=== PATIENT | female | born 1950 | race Caucasian/White ===

== ENCOUNTER 2023-06-26 20:19 | Inpatient (IN) | payer MEDICARE ==
[~2023-06-26] VITALS: Ht 167.6 cm; Wt 55.3 kg
[2023-06-26] MEDS ORDERED: ZOLPIDEM TARTRATE 5 MG TABLET PO PRN (22:00)
[2023-06-26] MEDS ORDERED: MAGNESIUM HYDROXIDE 30 ML UDC PO PRN (22:00)
[2023-06-26] MEDS ORDERED: ACETAMINOPHEN 325 MG TABLET PO PRN (22:00)
[2023-06-26] MEDS ORDERED: MAG HYDROX/AL HYDROX/SIMETH 30 ML UDC PO PRN (22:00)
[2023-06-26] MEDS ORDERED: BLOOD SUGAR DIAGNOSTIC 1 EACH STRIP IN ONE (23:00)
[2023-06-27] MEDS ORDERED: PANT40TA49 PO (01:01)
[2023-06-27] MEDS ORDERED: APIX5TAB PO (01:01)
[2023-06-27] MEDS ORDERED: METO25TA4 PO (01:01)
[2023-06-27] MEDS ORDERED: ROSU5TAB13 PO (01:01)
[2023-06-27] MEDS ORDERED: ONDA4TAB11 PO (01:02)
[2023-06-27] MEDS ORDERED: DOXE25CA3 PO (01:04)
[2023-06-27 02:11] VITALS: BP 132/76; TEMP 97.9; O2SAT 98
[2023-06-27] MEDS ORDERED: ONDANSETRON 4 MG TAB.RAPDIS PO PRN (04:30)
[2023-06-27] MEDS ORDERED: DEXTROSE 50%-WATER 50 ML DISP.SYRIN IV PRN (04:30)
[2023-06-27] MEDS ORDERED: BLOOD SUGAR DIAGNOSTIC 1 EACH STRIP IN SCH (07:30)
[2023-06-27 08:00] VITALS: BP 146/80; TEMP 98.2; O2SAT 94
[2023-06-27] MEDS: PANTOPRAZOLE 40 MG TABLET.DR PO SCH (08:00)
[2023-06-27] MEDS ORDERED: DOXEPIN HCL (25 MG) 25 MG CAPSULE PO SCH (09:00)
[2023-06-27] MEDS: METOPROLOL SUCCINATE 25 MG TAB.SR.24H PO SCH ×2 (09:34→21:37)
[2023-06-27] MEDS: APIXABAN 5 MG TABLET PO SCH ×2 (09:38→21:38)
[2023-06-27] MEDS: ATORVASTATIN 10 MG TABLET PO SCH (10:06)
[2023-06-27] MEDS: LORAZEPAM 1 MG TABLET PO PRN (15:35)
[2023-06-27 16:00] VITALS: BP 158/84; TEMP 98; O2SAT 94
[2023-06-27 20:00] VITALS: BP 187/81; TEMP 98.1; O2SAT 100
[2023-06-27] MEDS: QUETIAPINE FUMARATE 25 MG TABLET PO SCH (21:38)
[2023-06-28 08:00] VITALS: BP 151/69; TEMP 98; O2SAT 98
[2023-06-28] MEDS: PANTOPRAZOLE 40 MG TABLET.DR PO SCH (08:41)
[2023-06-28] MEDS: METOPROLOL SUCCINATE 25 MG TAB.SR.24H PO SCH ×2 (08:41→21:00)
[2023-06-28] MEDS: ATORVASTATIN 10 MG TABLET PO SCH (08:41)
[2023-06-28] MEDS: ESCITALOPRAM OXALATE (10 MG) 10 MG TABLET PO SCH (08:41)
[2023-06-28] MEDS: APIXABAN 5 MG TABLET PO SCH ×2 (08:42→21:00)
[2023-06-28 16:00] VITALS: BP 138/78; TEMP 97.7; O2SAT 98
[2023-06-28 20:00] VITALS: BP 129/74; TEMP 98.3; O2SAT 97
[2023-06-28 20:54] LABS: BASOPHILS # (AUTO) 0.1 K/uL (0.0-0.2); BASOPHILS % (AUTO) 0.9 % (0.0-2.0); EOSINOPHILS # (AUTO) 0.1 K/uL (0.0-0.7); EOSINOPHILS % (AUTO) 1.2 % (0.0-6.0); HEMATOCRIT 42 % (33-45); HEMOGLOBIN 13.6 g/dL (11.5-14.8); LYMPHOCYTES # (AUTO) 3.1 K/uL (0.8-4.8); LYMPHOCYTES % (AUTO) 28.1 % (20.0-44.0); MEAN CORPUSCULAR HEMOGLOBIN 30 PG (26.0-33.0); MEAN CORPUSCULAR HGB CONC 33 g/dl (31.0-36.0); MEAN CORPUSCULAR VOLUME 92 fL (82-100); MONOCYTES # (AUTO) 0.8 K/uL (0.1-1.30); MONOCYTES % (AUTO) 7.7 % (2.0-12.0); NEUTROPHILS # (AUTO) 6.8 K/uL (1.8-8.9); NEUTROPHILS % (AUTO) 62.1 % (43.0-81.0); PLATELET COUNT (AUTO) 358 K/uL (150-450); RED BLOOD CELL COUNT(AUTO) 4.57 MIL/uL (4.0-5.2); RED CELL DISTRIBUTION WIDTH 13.9 % (11.5-15.0); WHITE BLOOD COUNT (AUTO) 10.9 K/uL (4.3-11.0)
[2023-06-28 21:24] LABS: CHOLESTEROL 134 mg/dL (<200); HDL CHOLESTEROL 37 mg/dL (40-60); LDL 85 mg/dL (0-99); TRIGLYCERIDES 77 mg/dL (30-150)
[2023-06-28 21:26] LABS: THYROID STIMULATING HORMONE 1.629 uIU/mL (0.358-3.74)
[2023-06-28 21:38] LABS: CALCIUM, SERUM 9.7 mg/dL (8.5-10.1); CARBON DIOXIDE 24 mmol/L (21-32); CHLORIDE 105 mmol/L (98-107); CREATININE 0.9 mg/dL (0.6-1.3); GLUCOSE 126 mg/dL (74-106); POTASSIUM 4.9 mmol/L (3.5-5.1); SODIUM SERUM 142 mmol/L (136-145); UREA NITROGEN, BLOOD 25 mg/dL (7-18)
[2023-06-28] MEDS: QUETIAPINE FUMARATE 25 MG TABLET PO SCH (21:59)
[2023-06-29 08:00] VITALS: BP 156/72; TEMP 98.1; O2SAT 96
[2023-06-29] MEDS: PANTOPRAZOLE 40 MG TABLET.DR PO SCH (08:09)
[2023-06-29] MEDS: METOPROLOL SUCCINATE 25 MG TAB.SR.24H PO SCH ×2 (08:21→21:33)
[2023-06-29] MEDS: ESCITALOPRAM OXALATE (10 MG) 10 MG TABLET PO SCH ×2 (08:22→16:09)
[2023-06-29] MEDS: ATORVASTATIN 10 MG TABLET PO SCH (08:22)
[2023-06-29] MEDS: APIXABAN 5 MG TABLET PO SCH ×2 (08:28→21:34)
[2023-06-29 16:00] VITALS: BP 156/70; TEMP 97.9; O2SAT 98
[2023-06-29] MEDS: LORAZEPAM 1 MG TABLET PO PRN (16:09)
[2023-06-29 20:28] VITALS: BP 107/82; TEMP 97.9; O2SAT 96
[2023-06-29] MEDS: QUETIAPINE FUMARATE 25 MG TABLET PO SCH (21:34)
[2023-06-30] MEDS: PANTOPRAZOLE 40 MG TABLET.DR PO SCH (07:56)
[2023-06-30 08:00] VITALS: BP 137/78; TEMP 97.8; O2SAT 98
[2023-06-30] MEDS: METOPROLOL SUCCINATE 25 MG TAB.SR.24H PO SCH ×2 (08:25→21:14)
[2023-06-30] MEDS: ATORVASTATIN 10 MG TABLET PO SCH (08:25)
[2023-06-30] MEDS: ESCITALOPRAM OXALATE (10 MG) 10 MG TABLET PO SCH ×2 (08:25→16:00)
[2023-06-30] MEDS: APIXABAN 5 MG TABLET PO SCH ×2 (08:26→21:15)
[2023-06-30 16:00] VITALS: BP 159/66; TEMP 98.6; O2SAT 96
[2023-06-30] MEDS: QUETIAPINE FUMARATE 25 MG TABLET PO SCH (21:15)
[2023-06-30 23:11] VITALS: BP 113/69; TEMP 97.8; O2SAT 100
[2023-07-01 01:06] LABS: FOLIC ACID 10.2 ng/mL (>3.0)
[2023-07-01 08:00] VITALS: BP_SYST 140; BP_SYST 165; BP_DIAS 80; BP_DIAS 87; TEMP 97.6; O2SAT 98
[2023-07-01] MEDS: ESCITALOPRAM OXALATE (10 MG) 10 MG TABLET PO SCH ×2 (09:05→16:23)
[2023-07-01] MEDS: PANTOPRAZOLE 40 MG TABLET.DR PO SCH (09:05)
[2023-07-01] MEDS: ATORVASTATIN 10 MG TABLET PO SCH (09:05)
[2023-07-01] MEDS: METOPROLOL SUCCINATE 25 MG TAB.SR.24H PO SCH ×2 (09:06→21:18)
[2023-07-01] MEDS: APIXABAN 5 MG TABLET PO SCH ×2 (09:08→21:24)
[2023-07-01 11:42] VITALS: BP 152/65
[2023-07-01 16:00] VITALS: BP 146/74; TEMP 97.9; O2SAT 97
[2023-07-01] MEDS: QUETIAPINE FUMARATE 25 MG TABLET PO SCH (21:16)
[2023-07-01 21:29] VITALS: BP 160/75; TEMP 99.1; O2SAT 99
[2023-07-02] MEDS: LORAZEPAM 1 MG TABLET PO PRN (06:23)
[2023-07-02] MEDS: PANTOPRAZOLE 40 MG TABLET.DR PO SCH (07:52)
[2023-07-02 08:00] VITALS: BP 156/78; TEMP 98.7; O2SAT 97
[2023-07-02] MEDS: ESCITALOPRAM OXALATE (10 MG) 10 MG TABLET PO SCH (08:29)
[2023-07-02] MEDS: ATORVASTATIN 10 MG TABLET PO SCH (08:29)
[2023-07-02] MEDS: METOPROLOL SUCCINATE 25 MG TAB.SR.24H PO SCH ×2 (08:30→20:26)
[2023-07-02] MEDS: APIXABAN 5 MG TABLET PO SCH ×2 (08:30→20:27)
[2023-07-02] MEDS ORDERED: VENLAFAXINE XR 75 MG CAP.SR.24H PO SCH (10:00)
[2023-07-02] MEDS: VENLAFAXINE 37.5 MG TABLET PO SCH (13:29)
[2023-07-02 15:45] VITALS: BP 113/58; TEMP 97.8; O2SAT 97
[2023-07-02 16:00] VITALS: BP 113/58; TEMP 97.8; O2SAT 96
[2023-07-02 20:24] VITALS: BP 149/65; TEMP 99.3; O2SAT 98
[2023-07-02] MEDS: QUETIAPINE FUMARATE 25 MG TABLET PO SCH (21:10)
[2023-07-03 08:00] VITALS: BP 159/71; TEMP 97.6; O2SAT 94
[2023-07-03] MEDS: APIXABAN 5 MG TABLET PO SCH ×2 (08:19→21:25)
[2023-07-03] MEDS: PANTOPRAZOLE 40 MG TABLET.DR PO SCH (08:19)
[2023-07-03] MEDS: ATORVASTATIN 10 MG TABLET PO SCH (08:19)
[2023-07-03] MEDS: VENLAFAXINE 37.5 MG TABLET PO SCH (08:19)
[2023-07-03] MEDS: METOPROLOL SUCCINATE 25 MG TAB.SR.24H PO SCH ×2 (08:20→21:23)
[2023-07-03] MEDS: ENSURE ENLIVE 237 ML LIQUID (VANILLA) PO SCH (09:26)
[2023-07-03 16:00] VITALS: BP 141/67; TEMP 97.8; O2SAT 97
[2023-07-03] MEDS: QUETIAPINE FUMARATE 25 MG TABLET PO SCH (21:22)
[2023-07-04 08:00] VITALS: BP 159/69; TEMP 97.8; O2SAT 98
[2023-07-04] MEDS: VENLAFAXINE 37.5 MG TABLET PO SCH (08:10)
[2023-07-04] MEDS: ENSURE ENLIVE 237 ML LIQUID (VANILLA) PO SCH (08:10)
[2023-07-04] MEDS: APIXABAN 5 MG TABLET PO SCH ×2 (08:10→21:26)
[2023-07-04] MEDS: ATORVASTATIN 10 MG TABLET PO SCH (08:10)
[2023-07-04] MEDS: METOPROLOL SUCCINATE 25 MG TAB.SR.24H PO SCH ×2 (08:10→21:24)
[2023-07-04] MEDS: PANTOPRAZOLE 40 MG TABLET.DR PO SCH (08:10)
[2023-07-04 09:30] VITALS: BP 132/79
[2023-07-04 16:00] VITALS: BP 140/63; TEMP 97.8; O2SAT 97
[2023-07-04 20:00] VITALS: BP 160/77; TEMP 97.9; O2SAT 98
[2023-07-04] MEDS: QUETIAPINE FUMARATE 25 MG TABLET PO SCH (21:23)
[2023-07-05 08:00] VITALS: BP 134/74; TEMP 97.8; O2SAT 98
[2023-07-05] MEDS: VENLAFAXINE 37.5 MG TABLET PO SCH (08:01)
[2023-07-05] MEDS: ATORVASTATIN 10 MG TABLET PO SCH (08:01)
[2023-07-05] MEDS: PANTOPRAZOLE 40 MG TABLET.DR PO SCH (08:01)
[2023-07-05] MEDS: METOPROLOL SUCCINATE 25 MG TAB.SR.24H PO SCH ×2 (08:01→21:26)
[2023-07-05] MEDS: APIXABAN 5 MG TABLET PO SCH ×2 (08:02→21:25)
[2023-07-05] MEDS: ENSURE ENLIVE 237 ML LIQUID (VANILLA) PO SCH (08:03)
[2023-07-05 16:00] VITALS: BP 142/61; TEMP 98.1; O2SAT 97
[2023-07-05 20:00] VITALS: BP 139/82; TEMP 97.6; O2SAT 99
[2023-07-05] MEDS: QUETIAPINE FUMARATE 25 MG TABLET PO SCH (21:26)
[2023-07-06 08:00] VITALS: BP 162/74; TEMP 97.9; O2SAT 95
[2023-07-06] MEDS: PANTOPRAZOLE 40 MG TABLET.DR PO SCH (08:08)
[2023-07-06] MEDS: VENLAFAXINE 37.5 MG TABLET PO SCH (08:08)
[2023-07-06] MEDS: ATORVASTATIN 10 MG TABLET PO SCH (08:09)
[2023-07-06] MEDS: APIXABAN 5 MG TABLET PO SCH ×2 (08:09→21:01)
[2023-07-06] MEDS: METOPROLOL SUCCINATE 25 MG TAB.SR.24H PO SCH ×2 (08:09→21:02)
[2023-07-06] MEDS: ENSURE ENLIVE 237 ML LIQUID (VANILLA) PO SCH (08:10)
[2023-07-06 15:59] VITALS: BP 141/66; TEMP 98; O2SAT 99
[2023-07-06 20:17] VITALS: BP 101/62; TEMP 98; O2SAT 98
[2023-07-06] MEDS: QUETIAPINE FUMARATE 25 MG TABLET PO SCH (21:48)
[2023-07-07 08:00] VITALS: BP 139/67; TEMP 98.6; O2SAT 97
[2023-07-07] MEDS: VENLAFAXINE 37.5 MG TABLET PO SCH (08:05)
[2023-07-07] MEDS: PANTOPRAZOLE 40 MG TABLET.DR PO SCH (08:05)
[2023-07-07] MEDS: ENSURE ENLIVE 237 ML LIQUID (VANILLA) PO SCH (08:06)
[2023-07-07] MEDS: METOPROLOL SUCCINATE 25 MG TAB.SR.24H PO SCH ×2 (08:06→21:15)
[2023-07-07] MEDS: ATORVASTATIN 10 MG TABLET PO SCH (08:06)
[2023-07-07] MEDS: APIXABAN 5 MG TABLET PO SCH ×2 (08:08→21:16)
[2023-07-07 16:00] VITALS: BP 130/72; TEMP 97.9; O2SAT 98
[2023-07-07 19:42] VITALS: BP 154/66; TEMP 97.6; O2SAT 97
[2023-07-07] MEDS: QUETIAPINE FUMARATE 25 MG TABLET PO SCH (21:16)
[2023-07-08] MEDS: PANTOPRAZOLE 40 MG TABLET.DR PO SCH (07:54)
[2023-07-08 08:00] VITALS: BP 142/93; TEMP 97.8; O2SAT 96
[2023-07-08] MEDS: APIXABAN 5 MG TABLET PO SCH ×2 (08:02→21:06)
[2023-07-08] MEDS: METOPROLOL SUCCINATE 25 MG TAB.SR.24H PO SCH ×2 (08:03→21:07)
[2023-07-08] MEDS: ATORVASTATIN 10 MG TABLET PO SCH (08:03)
[2023-07-08] MEDS: VENLAFAXINE 37.5 MG TABLET PO SCH (08:06)
[2023-07-08] MEDS: LORAZEPAM 1 MG TABLET PO PRN ×2 (08:06→23:26)
[2023-07-08] MEDS: ENSURE ENLIVE 237 ML LIQUID (VANILLA) PO SCH (08:10)
[2023-07-08 16:00] VITALS: BP 153/67; TEMP 97.9; O2SAT 98
[2023-07-08 20:12] VITALS: BP 138/72; TEMP 98; O2SAT 99
[2023-07-08] MEDS: QUETIAPINE FUMARATE 25 MG TABLET PO SCH (21:09)
[2023-07-09] MEDS: PANTOPRAZOLE 40 MG TABLET.DR PO SCH (07:51)
[2023-07-09 08:00] VITALS: BP 147/64; TEMP 97.8; O2SAT 99
[2023-07-09] MEDS: VENLAFAXINE 37.5 MG TABLET PO SCH (08:22)
[2023-07-09] MEDS: METOPROLOL SUCCINATE 25 MG TAB.SR.24H PO SCH ×2 (08:22→21:08)
[2023-07-09] MEDS: APIXABAN 5 MG TABLET PO SCH ×2 (08:24→21:09)
[2023-07-09] MEDS: ENSURE ENLIVE 237 ML LIQUID (VANILLA) PO SCH (08:25)
[2023-07-09] MEDS: LORAZEPAM 1 MG TABLET PO PRN (14:22)
[2023-07-09 16:00] VITALS: BP 119/50; TEMP 98.7; O2SAT 99
[2023-07-09 20:14] VITALS: BP 147/70; TEMP 99.5; O2SAT 99
[2023-07-09] MEDS: QUETIAPINE FUMARATE 25 MG TABLET PO SCH (21:08)
[2023-07-09] MEDS: ATORVASTATIN 10 MG TABLET PO SCH (21:10)
[2023-07-10 08:00] VITALS: BP 140/72; TEMP 98.8; O2SAT 99
[2023-07-10] MEDS: APIXABAN 5 MG TABLET PO SCH ×2 (08:13→21:47)
[2023-07-10] MEDS: METOPROLOL SUCCINATE 25 MG TAB.SR.24H PO SCH ×2 (08:13→21:46)
[2023-07-10] MEDS: VENLAFAXINE 37.5 MG TABLET PO SCH (08:14)
[2023-07-10] MEDS: PANTOPRAZOLE 40 MG TABLET.DR PO SCH (08:14)
[2023-07-10] MEDS: ENSURE ENLIVE 237 ML LIQUID (VANILLA) PO SCH (08:14)
[2023-07-10 16:00] VITALS: BP 130/65; TEMP 98.4; O2SAT 98
[2023-07-10 20:00] VITALS: BP 103/51; TEMP 98.1; O2SAT 96
[2023-07-10] MEDS: ATORVASTATIN 10 MG TABLET PO SCH (21:45)
[2023-07-10] MEDS: QUETIAPINE FUMARATE 25 MG TABLET PO SCH (21:45)
[2023-07-11 08:00] VITALS: BP 141/70; TEMP 98.4; O2SAT 95
[2023-07-11] MEDS: VENLAFAXINE 37.5 MG TABLET PO SCH (09:06)
[2023-07-11] MEDS: PANTOPRAZOLE 40 MG TABLET.DR PO SCH (09:06)
[2023-07-11] MEDS: APIXABAN 5 MG TABLET PO SCH (09:07)
[2023-07-11] MEDS: ENSURE ENLIVE 237 ML LIQUID (VANILLA) PO SCH (09:07)
[2023-07-11 09:08] VITALS: BP 141/70
[2023-07-11] MEDS: METOPROLOL SUCCINATE 25 MG TAB.SR.24H PO SCH (09:08)
== END 2023-07-11 13:45 | DRG 885 ==
LOC: GPS 21:07
PROVIDERS: ADMIT Psychiatry & Neurology Psychiatry; ATTEND Nurse Practitioner Family
DX: F20.0 Paranoid schizophrenia (principal); F03.918 Unspecified dementia, unspecified severity, with other behavioral disturbance; F03.93 Unspecified dementia, unspecified severity, with mood disturbance; F03.94 Unspecified dementia, unspecified severity, with anxiety; F32.A Depression, unspecified; F29 Unspecified psychosis not due to a substance or known physiological condition; I10 Essential (primary) hypertension; Z79.01 Long term (current) use of anticoagulants; Z79.899 Other long term (current) drug therapy; Z73.6 Limitation of activities due to disability; E78.5 Hyperlipidemia, unspecified; I48.91 Unspecified atrial fibrillation
CPT/HCPCS: 36415; 70450-TC; 80048-TC; 80061-TC; 82607-TC; 83921; 84439-TC; 84443-TC; 85025-TC; 97116-TC; Q0162

== ENCOUNTER 2023-08-15 13:35 | Inpatient (IN) | payer MEDICARE, OTHER ==
[~2023-08-15] VITALS: Ht 162.6 cm; Wt 57.2 kg
[~2023-08-15 13:35] MED LIST: APIX5TAB PO; DOXE25CA3 PO; METO25TA4 PO; ONDA4TAB11 PO; PANT40TA49 PO; ROSU5TAB13 PO
[2023-08-15] MEDS ORDERED: CLON0.2T PO (14:22)
[2023-08-15] MEDS ORDERED: ACET-868 PO (14:22)
[2023-08-15] MEDS ORDERED: ATOR10TA PO (14:22)
[2023-08-15] MEDS ORDERED: NITR0.4T48 SL (14:22)
[2023-08-15] MEDS ORDERED: ONDA-97 PO (14:22)
[2023-08-15] MEDS ORDERED: QUET25TA PO (14:22)
[2023-08-15] MEDS ORDERED: FLUO10CA26 PO (14:22)
[2023-08-15 16:04] LABS: BASOPHILS # (AUTO) 0.1 K/uL (0.0-0.2); BASOPHILS % (AUTO) 0.9 % (0.0-2.0); EOSINOPHILS # (AUTO) 0.1 K/uL (0.0-0.7); RED CELL DISTRIBUTION WIDTH 13.7 % (11.5-15.0)
[2023-08-15 16:12] LABS: EOSINOPHILS % (AUTO) 0.9 % (0.0-6.0); HEMATOCRIT 39 % (33-45); LYMPHOCYTES # (AUTO) 1.7 K/uL (0.8-4.8); LYMPHOCYTES % (AUTO) 20.4 % (20.0-44.0); MEAN CORPUSCULAR HEMOGLOBIN 30 PG (26.0-33.0); MEAN CORPUSCULAR HGB CONC 34 g/dl (31.0-36.0); MEAN CORPUSCULAR VOLUME 90 fL (82-100); MONOCYTES # (AUTO) 0.6 K/uL (0.1-1.30); MONOCYTES % (AUTO) 7.6 % (2.0-12.0); NEUTROPHILS % (AUTO) 70.2 % (43.0-81.0); PLATELET COUNT (AUTO) 284 K/uL (150-450); WHITE BLOOD COUNT (AUTO) 8.5 K/uL (4.3-11.0)
[2023-08-15 16:27] LABS: SERUM AMMONIA 32 umol/L (11-32)
[2023-08-15 16:32] LABS: ALANINE AMINOTRANSFERASE 34 U/L (12-78); ALBUMIN 3.2 g/dL (3.4-5.0); ALKALINE PHOSPHATASE 58 U/L (46-116); ASPARTATE AMINOTRANSFERASE 20 U/L (15-37); BILIRUBIN,DIRECT 0.1 mg/dL (0.0-0.2); BILIRUBIN,TOTAL 0.4 mg/dL (0.2-1.0); CALCIUM, SERUM 8.8 mg/dL (8.5-10.1); CARBON DIOXIDE 26 mmol/L (21-32); CHLORIDE 105 mmol/L (98-107); CREATININE 0.9 mg/dL (0.6-1.3); GLUCOSE 117 mg/dL (74-106); POTASSIUM 3.8 mmol/L (3.5-5.1); SODIUM SERUM 136 mmol/L (136-145); TOTAL PROTEIN, SERUM 6.5 g/dL (6.4-8.2); UREA NITROGEN, BLOOD 15 mg/dL (7-18)
[2023-08-15 16:33] LABS: ACETAMINOPHEN 0 ug/ml (10-30); ALCOHOL, BLOOD < 3 mg/dL (0-10); SALICYLATE 1.2 mg/dL (2.8-20.0)
[2023-08-15 16:39] LABS: THYROID STIMULATING HORMONE 1.027 uIU/mL (0.358-3.74)
[2023-08-15 16:40] LABS: LACTIC ACID 1.4 mmol/L (0.4-2.0)
[2023-08-15 16:42] LABS: APPEARANCE,URINE CLEAR (CLEAR); BILIRUBIN,URINE NEGATIVE (NEGATIVE); BLOOD, URINE 1+ Ery/uL (NEGATIVE); COLOR,URINE YELLOW (YELLOW); KETONES,URINE NEGATIVE (NEGATIVE); LEUKOCYTE ESTERASE ,URINE TRACE (NEGATIVE); NITRITE, URINE NEGATIVE (NEGATIVE); PROTEIN,URINE NEGATIVE (NEGATIVE); UGLUCOSE 1+ mg/dL (NEGATIVE); UROBILINOGEN,URINE 0.2 EU/dL (0.2)
[2023-08-15] MEDS ORDERED: LORAZEPAM INJ 2 MG/ML VIAL IM ONE (17:00)
[2023-08-15] MEDS ORDERED: HALOPERIDOL LACTATE INJ 5 MG/ML VIAL IM ONE (17:00)
[2023-08-15] MEDS ORDERED: HALOPERIDOL LACTATE INJ 5 MG/ML VIAL ONE (17:07)
[2023-08-15] MEDS ORDERED: LORAZEPAM INJ 2 MG/ML VIAL ONE (17:08)
[2023-08-15 17:21] LABS: AMPHETAMINE, URINE NEGATIVE (NEGATIVE); BARBITURATE, URINE NEGATIVE (NEGATIVE); BENZODIAZEPINE, URINE NEGATIVE (NEGATIVE); CANNABINOID, URINE NEGATIVE (NEGATIVE); COCCAINE, URINE NEGATIVE (NEGATIVE); OPIATE, URINE NEGATIVE (NEGATIVE); PHENCYCLIDINE SCREEN,URINE NEGATIVE (NEGATIVE)
[2023-08-15 17:51] LABS: ADD URINE CULTURE NO; BACTERIA,URINE None seen /HPF (None Seen); CALCIUM OXALATE CRYSTALS,UR Rare /HPF (None Seen); RBC,URINE NONE SEEN /HPF (0-2); WBC,URINE 0-2 /HPF (0-3)
[2023-08-15 22:45] VITALS: BP 171/75; TEMP 98.3; O2SAT 99
[2023-08-15] MEDS ORDERED: BLOOD SUGAR DIAGNOSTIC 1 EACH STRIP IN ONE (23:00)
[2023-08-15] MEDS ORDERED: MAGNESIUM HYDROXIDE 30 ML UDC PO PRN (23:00)
[2023-08-15] MEDS ORDERED: MAG HYDROX/AL HYDROX/SIMETH 30 ML UDC PO PRN (23:00)
[2023-08-16] MEDS: ATORVASTATIN 10 MG TABLET PO SCH ×2 (00:13→21:38)
[2023-08-16] MEDS: METOPROLOL SUCCINATE 25 MG TAB.SR.24H PO SCH ×3 (00:13→21:00)
[2023-08-16] MEDS: APIXABAN 5 MG TABLET PO SCH ×3 (00:17→21:00)
[2023-08-16 08:00] VITALS: BP 137/66; TEMP 97.9; O2SAT 98
[2023-08-16] MEDS: LORAZEPAM 1 MG TABLET PO PRN ×3 (09:38→23:01)
[2023-08-16] MEDS: ACETAMINOPHEN 325 MG TABLET PO PRN (12:26)
[2023-08-16] MEDS: Fluoxetine 10 mg capsule PO SCH (14:07)
[2023-08-16 16:00] VITALS: BP 129/54; TEMP 98.6; O2SAT 99
[2023-08-16 20:07] VITALS: BP 126/72; TEMP 98; O2SAT 98
[2023-08-16] MEDS: QUETIAPINE FUMARATE 25 MG TABLET PO SCH (20:17)
[2023-08-17 08:00] VITALS: BP 110/63; TEMP 97.8; O2SAT 96
[2023-08-17] MEDS: Fluoxetine 10 mg capsule PO SCH (09:12)
[2023-08-17] MEDS: METOPROLOL SUCCINATE 25 MG TAB.SR.24H PO SCH ×2 (09:13→20:59)
[2023-08-17] MEDS: APIXABAN 5 MG TABLET PO SCH ×2 (09:14→20:58)
[2023-08-17] MEDS: LORAZEPAM 1 MG TABLET PO PRN (09:24)
[2023-08-17 16:13] VITALS: BP 140/69; TEMP 97.8; O2SAT 98
[2023-08-17] MEDS: QUETIAPINE FUMARATE 25 MG TABLET PO SCH (21:05)
[2023-08-17] MEDS: ATORVASTATIN 10 MG TABLET PO SCH (21:05)
[2023-08-18 08:00] VITALS: BP 144/74; TEMP 98.1; O2SAT 98
[2023-08-18] MEDS: Fluoxetine 10 mg capsule PO SCH (10:07)
[2023-08-18] MEDS: METOPROLOL SUCCINATE 25 MG TAB.SR.24H PO SCH ×2 (10:07→21:36)
[2023-08-18] MEDS: APIXABAN 5 MG TABLET PO SCH ×2 (10:10→21:41)
[2023-08-18] MEDS: LORAZEPAM 1 MG TABLET PO PRN (12:36)
[2023-08-18 16:00] VITALS: BP 157/71; TEMP 97.5; O2SAT 97
[2023-08-18 20:32] VITALS: BP 136/78; TEMP 97.9; O2SAT 97
[2023-08-18] MEDS ORDERED: OLANZAPINE 2.5 MG TABLET PO SCH (21:00)
[2023-08-18] MEDS: OLANZAPINE 2.5 MG TABLET PO SCH (21:36)
[2023-08-18] MEDS: ATORVASTATIN 10 MG TABLET PO SCH (21:37)
[2023-08-18] MEDS: ZOLPIDEM TARTRATE 5 MG TABLET PO PRN (23:51)
[2023-08-19 07:32] LABS: BASOPHILS % (AUTO) 0.7 % (0.0-2.0); EOSINOPHILS # (AUTO) 0.2 K/uL (0.0-0.7); EOSINOPHILS % (AUTO) 2.7 % (0.0-6.0); HEMATOCRIT 38 % (33-45); HEMOGLOBIN 13.1 g/dL (11.5-14.8); LYMPHOCYTES # (AUTO) 2.2 K/uL (0.8-4.8); LYMPHOCYTES % (AUTO) 31.8 % (20.0-44.0); MEAN CORPUSCULAR HEMOGLOBIN 30 PG (26.0-33.0); MEAN CORPUSCULAR HGB CONC 34 g/dl (31.0-36.0); MEAN CORPUSCULAR VOLUME 88 fL (82-100); MONOCYTES # (AUTO) 0.6 K/uL (0.1-1.30); MONOCYTES % (AUTO) 8.5 % (2.0-12.0); NEUTROPHILS % (AUTO) 56.3 % (43.0-81.0); PLATELET COUNT (AUTO) 284 K/uL (150-450); RED BLOOD CELL COUNT(AUTO) 4.36 MIL/uL (4.0-5.2); RED CELL DISTRIBUTION WIDTH 13.7 % (11.5-15.0); WHITE BLOOD COUNT (AUTO) 7.1 K/uL (4.3-11.0)
[2023-08-19 07:59] VITALS: BP 140/77; TEMP 98.7; O2SAT 100
[2023-08-19] MEDS: Fluoxetine 10 mg capsule PO SCH (08:30)
[2023-08-19] MEDS: METOPROLOL SUCCINATE 25 MG TAB.SR.24H PO SCH ×2 (08:31→21:23)
[2023-08-19] MEDS: OLANZAPINE 2.5 MG TABLET PO SCH ×2 (08:31→21:22)
[2023-08-19] MEDS: APIXABAN 5 MG TABLET PO SCH ×2 (09:51→21:21)
[2023-08-19 16:00] VITALS: BP 134/71; TEMP 97.9; O2SAT 98
[2023-08-19 20:00] VITALS: BP 124/64; TEMP 98.8; O2SAT 95
[2023-08-19] MEDS: ATORVASTATIN 10 MG TABLET PO SCH (21:21)
[2023-08-19] MEDS: ACETAMINOPHEN 325 MG TABLET PO PRN (21:23)
[2023-08-19] MEDS: ZOLPIDEM TARTRATE 5 MG TABLET PO PRN (23:06)
[2023-08-20 08:00] VITALS: BP 136/60; TEMP 97.7; O2SAT 100
[2023-08-20] MEDS: METOPROLOL SUCCINATE 25 MG TAB.SR.24H PO SCH ×2 (08:32→20:52)
[2023-08-20] MEDS: Fluoxetine 10 mg capsule PO SCH (08:32)
[2023-08-20] MEDS: APIXABAN 5 MG TABLET PO SCH ×2 (08:33→20:50)
[2023-08-20] MEDS: LORAZEPAM 1 MG TABLET PO PRN (15:06)
[2023-08-20 16:00] VITALS: BP 126/60; TEMP 98.1; O2SAT 96
[2023-08-20] MEDS: ACETAMINOPHEN 325 MG TABLET PO PRN (20:52)
[2023-08-20 20:58] VITALS: BP 125/69; TEMP 97.9; O2SAT 99
[2023-08-20] MEDS: ATORVASTATIN 10 MG TABLET PO SCH (21:02)
[2023-08-20] MEDS: OLANZAPINE 2.5 MG TABLET PO SCH (21:02)
[2023-08-20] MEDS: ZOLPIDEM TARTRATE 5 MG TABLET PO PRN (23:20)
[2023-08-21 08:00] VITALS: BP 115/58; TEMP 98.2; O2SAT 96
[2023-08-21] MEDS: APIXABAN 5 MG TABLET PO SCH ×2 (09:32→21:02)
[2023-08-21 09:34] VITALS: BP 155/69
[2023-08-21] MEDS: METOPROLOL SUCCINATE 25 MG TAB.SR.24H PO SCH ×2 (09:34→20:59)
[2023-08-21] MEDS: Fluoxetine 10 mg capsule PO SCH (09:39)
[2023-08-21] MEDS: LORAZEPAM 1 MG TABLET PO PRN (11:29)
[2023-08-21 16:00] VITALS: BP 140/87; TEMP 98.4; O2SAT 99
[2023-08-21 20:00] VITALS: BP 140/85; TEMP 98.5; O2SAT 98
[2023-08-21] MEDS: ATORVASTATIN 10 MG TABLET PO SCH (23:17)
[2023-08-21] MEDS: OLANZAPINE 2.5 MG TABLET PO SCH (23:17)
[2023-08-22] MEDS: ZOLPIDEM TARTRATE 5 MG TABLET PO PRN (00:05)
[2023-08-22 08:00] VITALS: BP 166/57; TEMP 98; O2SAT 98
[2023-08-22] MEDS: Fluoxetine 10 mg capsule PO SCH (08:10)
[2023-08-22] MEDS: METOPROLOL SUCCINATE 25 MG TAB.SR.24H PO SCH ×2 (08:11→21:39)
[2023-08-22] MEDS: APIXABAN 5 MG TABLET PO SCH ×2 (08:14→21:42)
[2023-08-22] MEDS: LORAZEPAM 1 MG TABLET PO PRN (13:32)
[2023-08-22 16:00] VITALS: BP 123/64; TEMP 98; O2SAT 98
[2023-08-22 20:00] VITALS: BP 143/57; TEMP 98.2; O2SAT 95
[2023-08-22] MEDS: ATORVASTATIN 10 MG TABLET PO SCH (21:38)
[2023-08-22] MEDS: OLANZAPINE 2.5 MG TABLET PO SCH (21:38)
[2023-08-23 08:00] VITALS: BP 126/67; TEMP 97.8; O2SAT 98
[2023-08-23] MEDS: LORAZEPAM 1 MG TABLET PO PRN (08:15)
[2023-08-23] MEDS: METOPROLOL SUCCINATE 25 MG TAB.SR.24H PO SCH ×2 (08:15→21:01)
[2023-08-23] MEDS: Fluoxetine 10 mg capsule PO SCH (08:15)
[2023-08-23] MEDS: APIXABAN 5 MG TABLET PO SCH ×2 (08:17→20:59)
[2023-08-23 16:00] VITALS: BP 124/68; TEMP 97.7; O2SAT 94
[2023-08-23 20:21] VITALS: BP 134/62; TEMP 97.7; O2SAT 96
[2023-08-23] MEDS: ATORVASTATIN 10 MG TABLET PO SCH (22:02)
[2023-08-23] MEDS: OLANZAPINE 2.5 MG TABLET PO SCH (22:02)
[2023-08-23] MEDS: TRAZODONE 50 MG TABLET PO SCH (22:03)
[2023-08-24] MEDS: ZOLPIDEM TARTRATE 5 MG TABLET PO PRN (01:54)
[2023-08-24 08:00] VITALS: BP 108/79; TEMP 98.9; O2SAT 96
[2023-08-24] MEDS: Fluoxetine 10 mg capsule PO SCH (09:49)
[2023-08-24] MEDS: METOPROLOL SUCCINATE 25 MG TAB.SR.24H PO SCH ×2 (09:51→21:23)
[2023-08-24] MEDS: APIXABAN 5 MG TABLET PO SCH ×2 (09:52→21:25)
[2023-08-24] MEDS: LORAZEPAM 1 MG TABLET PO PRN (15:20)
[2023-08-24 16:00] VITALS: BP 163/69; TEMP 98.6; O2SAT 98
[2023-08-24 20:25] VITALS: BP 133/80; TEMP 98.2; O2SAT 97
[2023-08-24] MEDS: OLANZAPINE 2.5 MG TABLET PO SCH (22:37)
[2023-08-24] MEDS: TRAZODONE 50 MG TABLET PO SCH (22:38)
[2023-08-24] MEDS: ATORVASTATIN 10 MG TABLET PO SCH (22:38)
[2023-08-25] MEDS: ZOLPIDEM TARTRATE 5 MG TABLET PO PRN (02:04)
[2023-08-25] MEDS: LORAZEPAM 1 MG TABLET PO PRN (04:00)
[2023-08-25] MEDS: Fluoxetine 10 mg capsule PO SCH ×2 (09:00→09:14)
[2023-08-25] MEDS: APIXABAN 5 MG TABLET PO SCH ×3 (09:00→20:58)
[2023-08-25] MEDS: METOPROLOL SUCCINATE 25 MG TAB.SR.24H PO SCH ×3 (09:00→20:54)
[2023-08-25 16:00] VITALS: BP 141/61; TEMP 98; O2SAT 97
[2023-08-25 20:28] VITALS: BP 153/64; TEMP 97.9; O2SAT 98
[2023-08-25] MEDS: ATORVASTATIN 10 MG TABLET PO SCH (21:57)
[2023-08-25] MEDS: OLANZAPINE 2.5 MG TABLET PO SCH (21:57)
[2023-08-25] MEDS: TRAZODONE 50 MG TABLET PO SCH (21:59)
[2023-08-26 08:00] VITALS: BP 126/57; TEMP 98; O2SAT 99
[2023-08-26] MEDS: METOPROLOL SUCCINATE 25 MG TAB.SR.24H PO SCH ×3 (09:00→22:00)
[2023-08-26] MEDS: Fluoxetine 10 mg capsule PO SCH ×3 (09:00→14:30)
[2023-08-26] MEDS: APIXABAN 5 MG TABLET PO SCH ×2 (09:00→21:57)
[2023-08-26 16:00] VITALS: BP 122/52; TEMP 98.1; O2SAT 98
[2023-08-26 19:58] VITALS: BP 113/60; TEMP 98.2; O2SAT 98
[2023-08-26] MEDS: OLANZAPINE 2.5 MG TABLET PO SCH (21:59)
[2023-08-26] MEDS: ATORVASTATIN 10 MG TABLET PO SCH (22:00)
[2023-08-26] MEDS: TRAZODONE 50 MG TABLET PO SCH (22:01)
[2023-08-27 08:00] VITALS: BP 126/54; TEMP 98.7; O2SAT 96
[2023-08-27] MEDS: METOPROLOL SUCCINATE 25 MG TAB.SR.24H PO SCH ×2 (08:41→20:34)
[2023-08-27] MEDS: Fluoxetine 10 mg capsule PO SCH (08:41)
[2023-08-27] MEDS: APIXABAN 5 MG TABLET PO SCH ×2 (08:42→20:34)
[2023-08-27] MEDS: LORAZEPAM 1 MG TABLET PO PRN ×2 (13:54→14:07)
[2023-08-27 16:00] VITALS: BP 117/52; TEMP 97.9; O2SAT 98
[2023-08-27 20:23] VITALS: BP 117/69; TEMP 97.9; O2SAT 98
[2023-08-27] MEDS: OLANZAPINE 2.5 MG TABLET PO SCH (21:27)
[2023-08-27] MEDS: TRAZODONE 50 MG TABLET PO SCH (21:28)
[2023-08-27] MEDS ORDERED: ATORVASTATIN 40 MG TABLET ONE (21:40)
[2023-08-27] MEDS ORDERED: ATORVASTATIN 10 MG TABLET ONE (21:43)
[2023-08-27] MEDS: ATORVASTATIN 10 MG TABLET PO SCH (21:45)
[2023-08-28 08:00] VITALS: BP 122/66; TEMP 97.7; O2SAT 97
[2023-08-28] MEDS: Fluoxetine 10 mg capsule PO SCH (09:18)
[2023-08-28 09:19] VITALS: BP 122/66
[2023-08-28] MEDS: METOPROLOL SUCCINATE 25 MG TAB.SR.24H PO SCH (09:19)
[2023-08-28] MEDS: APIXABAN 5 MG TABLET PO SCH (09:20)
== END 2023-08-28 15:31 | DRG 885 ==
LOC: ER 13:35 → GPS 21:27
PROVIDERS: ADMIT Psychiatry & Neurology Psychiatry
DX: F25.1 Schizoaffective disorder, depressive type (principal); F03.911 Unspecified dementia, unspecified severity, with agitation; D68.59 Other primary thrombophilia; I10 Essential (primary) hypertension; E78.5 Hyperlipidemia, unspecified; Z79.899 Other long term (current) drug therapy; Z79.01 Long term (current) use of anticoagulants; I48.91 Unspecified atrial fibrillation
CPT/HCPCS: 36415; 71045-TC; 80048-TC; 80076-TC; 81001; 82140-TC; 82962-TC; 83605-TC; 84443-TC; 84484-TC; 85025-TC; 97110-TC; 97116-TC; 97530-TC; G0480; J1630; J2060